=== PATIENT | female | born 1950 | race African-American/Black ===

== ENCOUNTER 2017-09-22 10:54 | Outpatient (CLI) | payer MEDICARE ==
--- NOTE | 2017-09-22 11:51 | MMO ---
BILATERAL SCREENING MAMMOGRAM: HISTORY: A 66-year-old female for screening mammography. COMPARISON: 08/25/16, 09/19/13. FINDINGS: Bilateral MLO and CC views of the breasts show scattered fibroglandular breast tissue. There is no e vidence of suspicious mass, suspicious clustered microcalcifications, or area of architectural distor tion. Interpretation of this mammogram was performed with the assistance of computer-aided detection. IMPRESSION: BI-RADS category 1 - negative. Annual screening mammography is recommended. POS: [facility]
== END 2017-09-22 10:55 | disposition home or self-care (01) ==
LOC: SCSMAMMO 10:54
PROVIDERS: ATTEND Family Medicine
DX: Z12.31 Encounter for screening mammogram for malignant neoplasm of breast (principal)
CPT/HCPCS: 77067; G0202

== ENCOUNTER 2018-10-05 10:23 | Outpatient (CLI) | payer MEDICARE ==
--- NOTE | 2018-10-05 11:16 | MMO ---
BILATERAL SCREENING MAMMOGRAM: Date: 10/05/18 HISTORY: 67-year-old female. Routine screening mammography. COMPARISON: 11/15/14, 08/25/16, 09/22/17. TECHNIQUE: CC and MLO views of both breasts are submitted for interpretation. This patient's mammogram was reviewed with the assistance of computer-aided detection. FINDINGS: The breasts are composed of scattered fibroglandular tissue. Bilaterally, no suspicious dominant mass , architectural distortion, or suspicious calcifications. IMPRESSION: BIRADS 2: Benign Finding(s) RECOMMENDATION: Annual mammogram. POS: [facility]
== END 2018-10-05 10:24 | disposition home or self-care (01) ==
LOC: SCSMAMMO 10:23
PROVIDERS: ATTEND Family Medicine
DX: Z12.31 Encounter for screening mammogram for malignant neoplasm of breast (principal)
CPT/HCPCS: 77067

== ENCOUNTER 2019-03-26 12:46 | Inpatient (IN) | payer MEDICARE ==
[2019-03-26 13:31] LABS: #Basophils 0.1 thou/uL (0.0-0.2); #Eosinphils 0.2 thou/uL (0.0-0.7); #Lymphocytes 4.1 thou/uL (1.20-3.40); #Monocytes 0.7 thou/uL (0.11-0.59); #Neutrophils 6.4 thou/uL (1.40-6.50); %Basophils 1.1 % (0.0-1.0); %Lymphocytes 35.4 % (21.0-51.0); %Monocytes 6.1 % (0.0-10.0); %Neutrophils 55.4 % (42.0-75.0); Hemoglobin 13.3 g/dL (12.0-16.0); Mean Corpuscular HGB CONC 31.9 g/dL (32.0-36.0); Mean Corpuscular Hemoglobin 26.7 pg (27.0-31.0); Mean Corpuscular Volume 83.7 fL (78.0-98.0); Mean Platelet Volume 7.1 fL (7.4-10.4); Platelet Count 336 thou/uL (130-400); RBC Distribution Width 13.9 % (11.5-14.5); Red Blood Cell (RBC) Count 4.98 mill/uL (4.20-5.40); White Blood Cell (WBC) Count 11.6 thou/uL (4.8-10.8)
--- NOTE | 2019-03-26 13:33 | CT ---
CT head noncontrast HISTORY: Altered mental status. COMPARISON: 11/03/2013. FINDINGS: There is no evidence of acute intracranial hemorrhage or infarct. The ventricles appear nor mal in size, shape and position. Mild chronic ischemic small vessel disease. There is no mass effect or shift of midline structures. Visualized paranasal sinuses remain well-aerated. IMPRESSION: No acute intracranial abnormalities are demonstrated
[2019-03-26 13:54] LABS: ALT (SGPT) 13 U/L (8-55); AST (SGOT) 13 U/L (5-34); Albumin 4.4 g/dL (3.4-4.8); Alkaline Phosphatase 155 U/L (40-150); Anion Gap 14 mmol/L (10-20); BUN (Urea Nitrogen) 11 mg/dL (9.8-20.1); Bilirubin, Total 0.4 mg/dL (0.2-1.2); Calc. Creatinine Clearance 0 mL/min (70-130); Calcium 9.9 mg/dL (7.8-10.44); Carbon Dioxide 27 mmol/L (23-31); Chloride 102 mmol/L (98-107); Estimated GFR-MDRD 66; Globulin 3.5 g/dL (2.4-3.5); Glucose 185 mg/dL (80-115); Potassium 3.8 mmol/L (3.5-5.1); Protein, Total 7.9 g/dL (6.0-8.3); Sodium 139 mmol/L (136-145)
[2019-03-26] MEDS ORDERED: Aspirin Chewable 81 MG TAB ONE ×2 (15:58→16:23)
[2019-03-26 17:43] VITALS: BMI 40.9
[2019-03-26] MEDS: Nortriptyline 10 MG CAP PO SCH (20:22)
[2019-03-26] MEDS ORDERED: HumaLOG 300 UNITS/3 ML VIAL SC PRN ×2 (22:59→23:04)
[2019-03-26] MEDS ORDERED: Dextrose 50% Abboject 50 ML SYRINGE IVP PRN (23:04)
[2019-03-26] MEDS ORDERED: Dextrose 5% in Water 1,000 ML IV PRN (23:04)
--- NOTE | 2019-03-27 07:01 | HP ---
CHIEF COMPLAINT: Right-sided numbness and tingling, right-sided facial pain. HISTORY OF PRESENT ILLNESS: This is a 68-year-old female patient with a history of type 2 diabetes; hypertension; hyperlipidemia, hyperthyroidism, remote history of a subdural hematoma, treated by Dr. Martinez in 2013. The patient states that she has been in her usual state of health until about 1 to 2 weeks ago when she developed right-sided neck and back pain and then a few days ago, she developed right facial numbness and tingling. On the day of admission, she noticed that the symptoms are worsen and she presented to the office for further evaluation. Due to her history of subdural hematoma, she was sent to the emergency room for further evaluation. In the emergency department, her evaluation was otherwise normal. No signs of recurrent hematoma on her CAT scan. Her symptoms had slowly started to improve, but continued to have numbness and tingling and pain on the right side of her body. Due to her symptoms and her past history, she is being admitted for further evaluation and treatment for a new onset CVA versus TIA. Of note, she has been noticing increased stress and anxiety on her last office visit in February. She was started on Lexapro for anxiety and depression as well as increased lipid therapy with atorvastatin. PAST MEDICAL HISTORY: Hypertension; type 2 diabetes; hyperlipidemia; past history of hyperthyroid with goiter, followed by Dr. Matthew for endocrinology; again history of a subdural hematoma in 2013; obstructive sleep apnea, on CPAP of 14 cm of water. PAST SURGICAL HISTORY: Harvinder-hole drainage of right subdural [place] [address] Martinez, history of fibroid tumors, left arm surgery, hysterectomy in 1982, cholecystectomy in 2004, cataract removal in 2005, and colonoscopy in 2008. FAMILY HISTORY: Father . Mother . SOCIAL HISTORY: No smoking or alcohol. No drug use. Lives alone. REVIEW OF SYSTEMS: GENERAL: As per the history of present illness, she denies any recent fevers or chills. HEENT: Positive headache behind her right eye. No visual changes. No hearing changes. History of head trauma in the past. CARDIAC: Denies chest pain, shortness of breath, or palpitations. PULMONARY: Denies cough or hemoptysis. CARDIAC: Denies chest pain. Occasional episodes of shortness of breath. PULMONARY: Denies cough or hemoptysis. GI: Denies nausea, vomiting, abdominal pain, melena, or hematochezia. : Denies dysuria or hematuria. NEUROLOGIC: As per the history of present illness. PSYCHIATRIC: History of anxiety and depression. MEDICATIONS: 1. Cetirizine 10 mg. 2. Tylenol p.r.n. 3. Scotts-3 1000 mg b.i.d. 4. Lexapro 10 mg daily. 5. Methimazole 5 mg daily. 6. Biotin 1000 mcg daily. 7. Gabapentin 300 mg 2 to 3 times a day. 8. Vitamin D daily. 9. Amlodipine 5 mg daily. 10. Losartan 25 mg daily. 11. Atorvastatin 10 mg daily. 12. Januvia 100 mg daily. 13. Metformin 500 mg daily. 14. Farxiga 10 mg daily. ALLERGIES: TO SULFA, LISINOPRIL, SHELLFISH, AND BANDAGES. PHYSICAL EXAMINATION: VITAL SIGNS: Temperature 98.4, pulse is 63, respirations 18, blood pressure 155 /72, and pulse ox 95% on room air. GENERAL: She is awake and alert, in no acute distress. Speech is clear and fluent. NECK: Supple. No JVD, adenopathy, or bruits. HEART: Regular rate and rhythm. LUNGS: Clear. ABDOMEN: Soft. EXTREMITIES: No clubbing, cyanosis, or edema. 2+ peripheral pulses bilaterally. NEUROLOGIC: Cranial nerves 2 through 12 are intact. Strength is 5/5 in the upper and lower extremities. No facial droop or slurred speech. Sensation is intact in the bilateral upper and lower extremities. LABORATORY DATA: White blood cell count 11,600 hemoglobin and hematocrit are 13.3 and 41.7 with macrocytic indices, and platelets are 336. Sodium 139, potassium 3.8, chloride 102, CO2 of 27, BUN and creatinine are 11 and 1.01 with a GFR of 66. Serum glucose of 185. AST and ALT are normal. Alkaline phosphatase is slightly elevated at 155. Troponin-I is negative. DIAGNOSTIC DATA: CT of the brain showed no active disease, no intracranial hemorrhage, no infarct, mild chronic ischemic small-vessel disease. ASSESSMENT AND PLAN: 1. This is a 68-year-old female with multiple medical problems as listed above including remote history of a subdural hematoma, now with new onset paresthesias of her right side as well as her right face. Agree with admission to rule out cerebrovascular accident, will check MRI of the brain as well as carotid Dopplers and echocardiogram. Consult stroke team including PT, OT, and speech therapy for further evaluation. Since her symptoms are resolving could possibly be transient ischemic attack. Due to her history, likely not a candidate for aspirin therapy or anticoagulation, may need to discuss with Dr. Martinez for further recommendations if she does rule in for cerebrovascular accident. 2. Type 2 diabetes, will continue oral medications and insulin sliding scale. She typically takes Farxiga 10 mg daily, which is not on hospital formula, we will continue insulin sliding scale. 3. Hypertension, will continue ARB and calcium-channel radha, and monitor closely. 4. Anxiety and depression, will continue Lexapro and outpatient counseling. Job ID: [id number] FOREIGN
[2019-03-27] MEDS ORDERED: hydrALAZINE 25 MG TAB PO PRN (08:13)
[2019-03-27] MEDS: metFORMIN 500 MG TAB PO SCH (08:22)
[2019-03-27] MEDS: Losartan 25 MG TAB PO SCH (08:22)
[2019-03-27] MEDS: Escitalopram Oxalate 10 mg Tablet PO SCH (08:22)
[2019-03-27] MEDS: Amlodipine 5 MG TAB PO SCH (08:22)
[2019-03-27] MEDS: Alogliptin 25 MG TAB PO SCH (08:22)
--- NOTE | 2019-03-27 09:31 | PRG ---
DATE OF SERVICE: 03/27/2019 SUBJECTIVE: The patient says she is feeling some better. She does not have the numbness and tingling on her face anymore. Continues to have left neck, head, and upper shoulder pain worsening with range of motion of her right arm. Denies chest pain, shortness of breath, or palpitations. Occasional headaches that come and go. No visual changes. Again, no numbness or weakness. OBJECTIVE: VITAL SIGNS: Temperature 97.8, pulse is 66, respirations 17, blood pressure 151/85, pulse ox 95% on room air. GENERAL: She is awake and alert. Speech is clear. HEENT: Mucosa is moist. NECK: Supple. No adenopathy. No bruits. HEART: Regular rate and rhythm. LUNGS: Clear bilaterally. ABDOMEN: Soft. NEUROLOGIC: Cranial nerves 2 through 12 are intact. Strength is 5/5 in upper extremities. Sensation is intact in upper extremities bilaterally. LABORATORY DATA: Reviewed. Accu-Cheks of 146, 135. MRI of the brain is pending. Carotid Dopplers are pending. Echocardiogram is pending. ASSESSMENT AND PLAN: This is a 68-year-old female patient with history of subdural hematoma 5 years ago, now with onset of right-sided pain, numbness and tingling in her face, admitted for rule out cerebrovascular accident versus transient ischemic attack, likely a musculoskeletal component to it. 1. Await MRI, carotid Doppler, and echocardiogram. We will continue to hold anticoagulation until certain, it is necessary due to her history of a hematoma. 2. Cervical strain. I will give trial of muscle relaxants and warm compress. Continue physical therapy for evaluation. 3. Type 2 diabetes. We will continue her oral medications and insulin sliding scale. 4. Hypertension, appears to be stable. May need to add hydralazine for better control of her blood pressure. Hopefully, home soon, if workup remains negative. Job ID: [id number]
--- NOTE | 2019-03-27 09:58 | ULT ---
BILATERAL CAROTID DUPLEX ULTRASOUND: HISTORY: Altered mental status TECHNIQUE: Grayscale, color-flow and spectral Doppler ultrasound imaging of the extracranial carotid artery syst ems was performed bilaterally. FINDINGS: The intimal thickness in the left common carotid artery measures approximately 1 mm.. No significant atherosclerotic plaque is seen in the carotid arteries bilaterally, and no significant intimal thickening is present in the right common carotid artery. There is no hemodynamically significant stenosis in the bilateral internal carotid arteries according to the peak systolic velocities and the ICA/CCA ratios. The peak systolic velocity in the right ICA measures 72.9 cm/s. The peak systolic velocity in the left ICA measures 87.5 cm/s. The right IC A/CCA ratio is 0.68, and the left ICA/CCA ratio is 0.68. Vertebral arteries: Antegrade flow is demonstrated in the vertebral arteries bilaterally. IMPRESSION: No hemodynamically significant stenosis in the bilateral internal carotid arteries.
--- NOTE | 2019-03-27 13:54 | MRI ---
MRI BRAIN WITHOUT CONTRAST: HISTORY: Altered mental status. CORRELATION: CT brain from the previous day. FINDINGS: No foci of restricted diffusion is seen. No evidence of infarct, hemorrhage, midline shift, or abnor mal extraaxial fluid collections noted. Multiple foci of T2 prolongation in the periventricular whit e matter are consistent with chronic small vessel ischemic disease. The visualized paranasal sinuses and mastoid air cells are well aerated. IMPRESSION: No evidence of acute intracranial process. POS: [facility]
[2019-03-27] MEDS: Nortriptyline 10 MG CAP PO SCH (19:35)
[2019-03-27] MEDS: Cyclobenzaprine 10 MG TAB PO SCH (19:36)
[2019-03-27] MEDS ORDERED: Atorvastatin Calcium 10 MG TAB PO SCH (21:00)
[2019-03-28 07:15] VITALS: BP 142/83; TEMP 97.8
[2019-03-28] MEDS: Alogliptin 25 MG TAB PO SCH (08:26)
[2019-03-28] MEDS: Losartan 25 MG TAB PO SCH (08:26)
[2019-03-28] MEDS: Amlodipine 5 MG TAB PO SCH (08:26)
[2019-03-28] MEDS: Cyclobenzaprine 10 MG TAB PO SCH (08:26)
[2019-03-28] MEDS: metFORMIN 500 MG TAB PO SCH (08:26)
[2019-03-28] MEDS: Escitalopram Oxalate 10 mg Tablet PO SCH (08:26)
--- NOTE | 2019-03-28 10:24 | PDOC.PALCO ---
Palliative Care Consult - Consult Details Requesting Physician: Dr Porter Reason for Consult: symptom management, advance directives assistance - Pertinent HPI Patient was admitted with neckpain, numbness tingling. - Pertinent PMH HTN, DMII, Hyperlipidemia, Hyperthyroid, Subdural hematoma - Social History Living Situation: independent - Medications MAR Reviewed: Yes - Allergies Allergies/Adverse Reactions: Allergies Allergy/AdvReac Type Severity Reaction Status Date / Time lisinopril Allergy Severe Angioedema Verified 11/03/13 09:57 Sulfa (Sulfonamide Allergy Verified 11/02/13 22:47 Antibiotics) - Objective Vital Signs: Vital Signs - Most Recent Temp Pulse Resp BP Pulse Ox 97.8 F 74 18 142/83 H 93 L 03/28/19 07:14 03/28/19 08:26 03/28/19 07:14 03/28/19 07:14 03/28/19 08:22 Palliative Performance Scale: 50 - Physical Exam Constitutional: NAD HEENT: moist MMs, EOMI Respiratory: no wheezing, clear to auscultation bilateral, unlabored breathing Cardiovascular: RRR Gastrointestinal: soft, non-tender Deviation from normal: numbness tingling to right hand, intermitt Deviation from normal: appears depressed/anxious - Problem List (1) Palliative care encounter Code(s): Z51.5 - ENCOUNTER FOR PALLIATIVE CARE Current Visit: Yes Status: Acute - Plan/Recommendations Plan: Appears numbness has been relieved with heating pad and muscle relaxer. In discussion with patient she has significant stress. She has been assisting with two siblings in [facility] who are ill. Specifically a brother that she and siblings are assisting with end of life decisions as he has been on dialysis for 11 years and had multiple mylemoma. She travels to frequently. She has started on antidepressant and goes to a support group here in [place]. Plan: *Heating pad at home *Continue Muscle relaxer at home as prescribed *Continue support group [40] minutes spent on this encounter with >50% of the time in counseling and coordination of care. Thank you for this very appropriate consult.
--- NOTE | 2019-03-28 12:21 | DIS ---
DATE OF ADMISSION: 03/26/2019 DATE OF DISCHARGE: 03/28/2019 ADMISSION DIAGNOSES: New onset right-sided pain, weakness, and paresthesia. DISCHARGE DIAGNOSES: Cervical neck strain with paresthesia, possible radiculopathy. OTHER DIAGNOSES: 1. History of subdural hematoma. 2. Type 2 diabetes. 3. Hypertension. 4. Anxiety and depression. 5. Hyperthyroidism. CONSULTATIONS: None. PROCEDURES: Telemetry monitoring, stroke unit. MRI of the brain, carotid Dopplers, echocardiogram, physical therapy, occupational therapy, speech therapy. HOSPITAL COURSE: This is a 68-year-old female patient with history of type 2 diabetes, hypertension, hyperlipidemia, hyperthyroidism, remote history of a subdural hematoma in 2013, who presented to the office with complaints of right-sided pain, numbness, and weakness. She was sent to the emergency department for evaluation, had a normal CT of her brain. She was admitted and MRI, carotid Dopplers, and echocardiogram were obtained. She was not started on aspirin initially due to her history of a subdural hematoma and low indication of CVA symptoms. Her symptoms improved with physical therapy. She was started on muscle relaxants and warm compresses to her shoulder and neck as well. MRI was negative. Carotid Dopplers were normal and echocardiogram was normal as well. She was seen by the Stroke Team and had no other further progression of her symptoms. The weakness resolved. The pain improved. She continued to have on and off numbness, but no further CVA symptoms. As she was ambulating with Physical Therapy, felt like she had some deconditioning with physical therapy and recommended outpatient therapy, which was to be arranged as well. She was back to her baseline upon discharge and was discharged home in good condition. DISCHARGE PHYSICAL EXAMINATION: VITAL SIGNS: Temperature 97.8, pulse is 74, respirations 18, blood pressure 142/83, and pulse ox is 93% to 96% on room air. GENERAL: She is awake and alert, in no acute distress. Speech is clear and fluent. NECK: Supple. No bruits. HEART: Regular rate and rhythm. LUNGS: Clear. ABDOMEN: Soft. EXTREMITIES: With no edema. NEUROLOGIC: Cranial nerves 2 through 12 are intact. Sensation is intact bilaterally. Strength is 5/5 in upper and lower extremities. MUSCULOSKELETAL: C-spine with painful range of motion. Exquisite tenderness in the trapezius and sternocleidomastoid area on the right worse than the left. LABORATORY DATA: Discharge labs were reviewed. Accu-Cheks of 145, 220, 111, 171, 146. Again, CT of the brain showed no active disease. MRI of the brain showed no signs of hemorrhage, stroke, or mass effect. Carotid Doppler showed no stenosis. Echocardiogram revealed ejection fraction of 55% to 60%, some suggestion of diastolic dysfunction. Mild mitral regurgitation. Mild tricuspid regurgitation. DISCHARGE MEDICATIONS: Include; 1. Januvia 100 mg daily. 2. Farxiga 10 mg daily. 3. Amlodipine 5 mg daily. 4. Lipitor 10 mg daily. 5. Flexeril 10 mg b.i.d. p.r.n. 6. Lexapro 10 mg daily. 7. Hydralazine 25 mg t.i.d. p.r.n. elevated blood pressure. 8. Losartan 25 mg daily. DISCHARGE PLAN: Outpatient physical therapy to be arranged to help with deconditioning as well as neck strain. Follow up in my office in 1 to 2 weeks. For her type 2 diabetes, she will continue following Dr. Matthew and resume her home medications. Job ID: [id number]
== END 2019-03-28 11:34 | disposition home or self-care (01) | DRG 74 ==
LOC: ERS 12:46 → 2SE 16:02
PROVIDERS: ADMIT Family Medicine; ATTEND Family Medicine
DX: M54.12 Radiculopathy, cervical region (principal); Z68.41 Body mass index [BMI] 40.0-44.9, adult; E66.9 Obesity, unspecified; I10 Essential (primary) hypertension; E11.9 Type 2 diabetes mellitus without complications; E03.9 Hypothyroidism, unspecified; E78.5 Hyperlipidemia, unspecified; G47.33 Obstructive sleep apnea (adult) (pediatric); F41.9 Anxiety disorder, unspecified; F32.9 Major depressive disorder, single episode, unspecified; Z51.5 Encounter for palliative care; Z90.710 Acquired absence of both cervix and uterus; Z90.49 Acquired absence of other specified parts of digestive tract; Z79.899 Other long term (current) drug therapy; Z79.4 Long term (current) use of insulin; Z88.2 Allergy status to sulfonamides; Z88.8 Allergy status to other drugs, medicaments and biological substances; Z91.013 Allergy to seafood; Z86.79 Personal history of other diseases of the circulatory system
CPT/HCPCS: 36415; 36416; 70450; 70551; 80053; 84484; 85025; 93005; 93306; 93880; 99213; G0463

== ENCOUNTER 2021-07-23 09:21 | Outpatient (CLI) | payer MEDICARE ==
[2021-07-23 10:09] LABS: #Basophils 0.1 10x3/uL (0.0-0.2); #Eosinphils 0.2 10x3/uL (0.0-0.5); #Monocytes 0.9 10x3/uL (0.0-1.1); #Neutrophils 6.9 10x3/uL (1.5-8.4); %Basophils 0.7 % (0.0-2.0); %Eosinophils 1.8 % (0.0-6.0); %Lymphocytes 32.6 % (18.0-47.0); %Monocytes 7.4 % (0.0-10.0); %Neutrophils 57.2 % (40.0-75.0); Hemoglobin 12.2 g/dL (12.0-15.5); Mean Corpuscular HGB CONC 30.9 g/dL (32.0-36.0); Mean Corpuscular Hemoglobin 25.2 pg (27.0-33.0); Mean Corpuscular Volume 81.4 fl (81.6-98.3); Mean Platelet Volume 9.6 fl (7.4-10.4); Platelet Count 365 10x3/uL (150-450); Red Blood Cell (RBC) Count 4.85 10x6/uL (3.90-5.03); White Blood Cell (WBC) Count 12.1 10x3/uL (3.5-10.5)
[2021-07-23 10:53] LABS: Bilirubin Neg (Negative); Blood, Urine 25 (Negative); Clarity Clear (Clear); Glucose, Urine (Dipstick) >=1000 mg/dL (Negative); Ketone, Urine Negative (Negative); Leukocyte Negative (Negative); Nitrite Negative (Negative); Protein, Urine (Dipstick) 30 mg/dl (Neg-Trace); Specific Gravity, Urine 1.015 (1.002-1.036); Urobilinogen Normal mg/dL (Less than 2)
[2021-07-24 01:05] LABS: SARS-CoV-2 PCR by NAA Not Detected (NotDetected)
== END 2021-07-23 09:22 | disposition home or self-care (01) ==
LOC: LABBT 09:21
PROVIDERS: ATTEND Orthopaedic Surgery Hand Surgery
DX: Z01.818 Encounter for other preprocedural examination (principal); G56.01 Carpal tunnel syndrome, right upper limb; M65.4 Radial styloid tenosynovitis [de Quervain]; Z20.822 Contact with and (suspected) exposure to COVID-19
CPT/HCPCS: 81003; 85025; 93005; U0003; U0005; 93010

== ENCOUNTER 2021-07-27 11:32 | Day surgery (SDC) | payer MEDICARE ==
[2021-07-24 12:20] VITALS: BMI 41.3
[2021-07-27] MEDS ORDERED: Bacitracin Zinc Ointment 30 gm TUBE ONE (12:56)
[2021-07-27] MEDS ORDERED: Bupivacaine PF 0.5% 30 ML VIAL ONE (12:56)
[2021-07-27] MEDS ORDERED: Betamet Acet/Betamet Na Ph 30 MG/5 ML VIAL ONE (12:56)
[2021-07-27] MEDS ORDERED: Fentanyl 100 MCG/2 ML VIAL ONE (12:57)
[2021-07-27] MEDS ORDERED: Dexamethasone 20 MG/5 ML VIAL ONE (14:08)
[2021-07-27] MEDS ORDERED: Lidocaine 1% PF 5 ML VIAL ONE (14:08)
[2021-07-27] MEDS ORDERED: PROPOFOL 200 MG/20 ML VIAL ONE (14:08)
[2021-07-27] MEDS ORDERED: Ondansetron PF 4 MG/2 ML Vial ONE (14:08)
[2021-07-27] MEDS ORDERED: Ketorolac Tromethamine 30 MG/ML VIAL ONE (15:31)
[2021-07-27] MEDS ORDERED: HYDROcodone/Acetaminophen 5/325 mg Tablet ONE (16:42)
== END 2021-07-27 17:20 | disposition home or self-care (01) ==
LOC: SDC 11:32
PROVIDERS: ATTEND Orthopaedic Surgery Hand Surgery
PROC: 01N50ZZ Release Median Nerve, Open Approach (ICD-10-PCS; principal; 2021-07-27)
PROC: 0LB50ZZ Excision of Right Lower Arm and Wrist Tendon, Open Approach (ICD-10-PCS; 2021-07-27)
DX: M65.4 Radial styloid tenosynovitis [de Quervain] (principal); G56.03 Carpal tunnel syndrome, bilateral upper limbs; E11.9 Type 2 diabetes mellitus without complications; I10 Essential (primary) hypertension; E78.00 Pure hypercholesterolemia, unspecified; G47.33 Obstructive sleep apnea (adult) (pediatric); M67.432 Ganglion, left wrist; M18.11 Unilateral primary osteoarthritis of first carpometacarpal joint, right hand; Z79.4 Long term (current) use of insulin; Z79.84 Long term (current) use of oral hypoglycemic drugs; Z79.899 Other long term (current) drug therapy; Z88.2 Allergy status to sulfonamides; Z88.8 Allergy status to other drugs, medicaments and biological substances; Z91.013 Allergy to seafood; Z91.048 Other nonmedicinal substance allergy status; Z98.890 Other specified postprocedural states
CPT/HCPCS: 88305; J0702; J1100; J1885; J2405; J2704; J3010; S0020

== ENCOUNTER 2021-11-05 16:30 | Outpatient (CLI) | payer MEDICARE | END 2021-11-05 16:31 | disposition home or self-care (01) | LOC: SLEEPLAB 16:30 | PROVIDERS: ATTEND Internal Medicine Pulmonary Disease | DX: G47.33 Obstructive sleep apnea (adult) (pediatric) (principal); I10 Essential (primary) hypertension; E11.9 Type 2 diabetes mellitus without complications; G47.00 Insomnia, unspecified | CPT/HCPCS: 95806 ==

== ENCOUNTER 2021-11-17 14:09 | Outpatient (CLI) | payer MEDICARE | END 2021-11-17 14:10 | disposition home or self-care (01) | LOC: DTY/OP 14:09 | PROVIDERS: ATTEND Internal Medicine Pulmonary Disease | DX: E11.9 Type 2 diabetes mellitus without complications (principal); E66.9 Obesity, unspecified; Z68.41 Body mass index [BMI] 40.0-44.9, adult | CPT/HCPCS: 97802 ==

== ENCOUNTER 2025-06-26 10:04 | Outpatient (CLI) | payer MEDICARE ==
[2025-06-26 13:06] LABS: #Basophils 0.09 10x3/uL (0.0-0.2); #Eosinophils 0.33 10x3/uL (0.0-0.7); #Monocytes 1.02 10x3/uL (0.11-0.59); #Neutrophils 6.64 10x3/uL (1.40-6.50); %Basophils 0.7 % (0.0-1.0); %Eosinophils 2.6 % (0.0-10.0); %Lymphocytes 35.2 % (21.0-51.0); %Monocytes 8.1 % (0.0-10.0); %Neutrophils 53.1 % (42.0-75.0); Hematocrit 42.2 % (36.0-47.0); Hemoglobin 12.6 g/dL (12.0-16.0); Mean Corpuscular Hemoglobin 25.9 pg (27.0-31.0); Mean Corpuscular Volume 86.7 fL (78.0-98.0); Platelet Count 305 10x3/uL (130-400); Red Blood Cell (RBC) Count 4.87 mill/uL (4.20-5.40); White Blood Cell (WBC) Count 12.54 10x3/uL (4.8-10.8)
[2025-06-26 13:30] LABS: Anion Gap 15 mmol/L (10-20); BUN (Urea Nitrogen) 9 mg/dL (9.8-20.1); Calc. Creatinine Clearance 0 mL/min (70-130); Calcium 9.1 mg/dL (7.8-10.44); Carbon Dioxide 26 mmol/L (23-31); Chloride 107 mmol/L (98-107); Glucose 151 mg/dL (83-110); Potassium 3.6 mmol/L (3.5-5.1); Sodium 144 mmol/L (136-145)
== END 2025-06-26 10:05 | disposition home or self-care (01) ==
LOC: LABBT 10:04
PROVIDERS: ATTEND Orthopaedic Surgery
DX: Z01.818 Encounter for other preprocedural examination (principal); G56.02 Carpal tunnel syndrome, left upper limb; M67.432 Ganglion, left wrist; M65.4 Radial styloid tenosynovitis [de Quervain]
CPT/HCPCS: 80048; 85025; 93005; 93010